=== PATIENT | male | born 1960 | race American Indian/Alaskan Native ===

== ENCOUNTER 2016-07-23 14:13 | Emergency (ER) | payer MEDICARE ==
[2016-07-23 14:29] VITALS: BP 101/67
[2016-07-23] MEDS ORDERED: D5NS 0.2% 1,000 ML IV SCH (15:00)
== END 2016-07-23 22:30 | disposition left against medical advice (07) ==
LOC: ED 14:13
DX: D57.00 Hb-SS disease with crisis, unspecified (principal); Z53.21 Procedure and treatment not carried out due to patient leaving prior to being seen by health care provider

== ENCOUNTER 2020-12-30 01:00 | Emergency (ER) | payer MEDICARE ==
[2020-12-30 01:07] VITALS: BP 110/60
[2020-12-30] MEDS ORDERED: KETOROLAC 30 MG/1 ML INJ IV ONE (01:21)
[2020-12-30] MEDS ORDERED: HYDROmorphone 2 MG/1 ML INJ IV ONE ×3 (01:21→05:06)
[2020-12-30] MEDS ORDERED: ONDANSETRON 4 MG/2 ML INJ IV ONE ×2 (01:21→05:06)
[2020-12-30] MEDS ORDERED: diphenhydrAMINE 50 MG/ML VIAL IV ONE ×2 (01:21→05:06)
--- NOTE | 2020-12-30 01:31 | Emergency Department Report ---
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 Patient is having pain to lower back, bilateral legs, right arm that is mild to severe intensity. Patient is taking Dilaudid 4 mg, Percocet 10 mg, Benadryl, Toradol, and Zofran without improvement. 3 days ago patient received IV fluids and pain medicine at infusion treatment facility without improvement. Patient was evaluated by his auto service station attendant. Patient also reports for about 1 week he has had a infection/rash to his scrotal area secondary to bug bites. He was put on mupirocin and triamcinolone topical treatment prescribed by his auto service station attendant. Patient complains of continued pain and burning scrotal area. No reports of fever. - Related Data Home Medications Medication Instructions Recorded Confirmed Last Taken Folic Acid 0.4 mg PO QDAY 10/27/12 05/04/15 05/04/15 Multivitamin [Multi-Vitamin Daily] 1 each PO DAILY 10/27/12 05/04/15 05/04/15 diphenhydrAMINE [Benadryl CAP] 50 mg PO Q4-6H PRN 10/27/12 05/04/15 04/21/13 09:00 Previous Rx's Medication Instructions Recorded Last Taken Type Oxycodone HCl/Acetaminophen 1 each PO Q6HR PRN #25 tablet 11/26/12 04/19/13 09:00 Rx [Percocet 10/325 mg] Ibuprofen [Motrin] 800 mg PO Q8HR PRN #10 tablet 05/04/15 Unknown Rx cephALEXin [Keflex] 500 mg PO Q6HR #28 capsule 12/30/20 Unknown Rx Allergies Allergy/AdvReac Type Severity Reaction Status Date / Time No Known Allergies Allergy Verified 05/04/15 13:31 ED Review of Systems ROS: Stated complaint: SICKLE CELL Other details as noted in HPI Comment: All other systems reviewed and negative ED Past Medical Hx - Past Medical History Previous Medical History?: Yes Hx Sickle Cell Disease: Yes - Surgical History Past Surgical History?: Yes Hx Cholecystectomy: Yes Additional Surgical History: spleenectomy. port right chest - Social History Smoking Status: Never Smoker Substance Use Type: None - Medications Home Medications: Home Medications Medication Instructions Recorded Confirmed Last Taken Type Folic Acid 0.4 mg PO QDAY 10/27/12 05/04/15 05/04/15 History Multivitamin [Multi-Vitamin Daily] 1 each PO DAILY 10/27/12 05/04/15 05/04/15 History diphenhydrAMINE [Benadryl CAP] 50 mg PO Q4-6H PRN 10/27/12 05/04/15 04/21/13 09:00 History Oxycodone HCl/Acetaminophen 1 each PO Q6HR PRN #25 tablet 11/26/12 05/04/15 04/19/13 09:00 Rx [Percocet 10/325 mg] Ibuprofen [Motrin] 800 mg PO Q8HR PRN #10 tablet 05/04/15 Unknown Rx cephALEXin [Keflex] 500 mg PO Q6HR #28 capsule 12/30/20 Unknown Rx ED Physical Exam - General Limitations: No Limitations - Other Other exam information: General: No acute distress Head: Atraumatic Eyes: normal appearance ENT: Moist mucous membranes Neck: Normal appearance, no midline tenderness Chest: Clear to auscultation bilaterally. Port the left chest CV: Regular rate and rhythm Abdomen: Soft, normal bowel sounds, nontender, nondistended, no rebound or guarding : Left scrotal area with irritated and excoriated skin. Area moist from recent topical treatment. Discoloration does not extend to the penis Back: Normal inspection Extremity: Normal inspection, full range of motion Neuro: Alert O x 3, no facial asymmetry, speech clear, no gross motor sensory deficit Psych: Appropriate behavior Skin: No rash ED Course Vital Signs 12/30/20 12/30/20 01:05 01:57 Temperature 98.3 F Pulse Rate 92 H Respiratory 18 Rate Blood Pressure 110/60 O2 Sat by Pulse 95 98 Oximetry ED Medical Decision Making - Lab Data Result diagrams: 12/30/20 02:07 Lab Results 12/30/20 Range/Units 02:07 WBC 13.8 H (4.5-11.0) K/mm3 RBC 3.27 L (3.65-5.03) M/mm3 Hgb 7.9 L (11.8-15.2) gm/dl Hct 24.9 L (35.5-45.6) % MCV 76 L (84-94) fl MCH 24 L (28-32) pg MCHC 32 (32-34) % RDW 23.2 H (13.2-15.2) % Plt Count 229 (140-440) K/mm3 Add Manual Diff Complete Total Counted 100 Seg Neuts % (Manual) 69.0 (40.0-70.0) % Band Neutrophils % 1.0 % Lymphocytes % (Manual) 23.0 (13.4-35.0) % Monocytes % (Manual) 7.0 (0.0-7.3) % Nucleated RBC % 12.0 H (0.0-0.9) % Seg Neutrophils # Man 0.0 L (1.8-7.7) K/mm3 Band Neutrophils # 0.0 K/mm3 Lymphocytes # (Manual) 0.0 L (1.2-5.4) K/mm3 Abs React Lymphs (Man) 0.0 K/mm3 Monocytes # (Manual) 0.0 (0.0-0.8) K/mm3 Eosinophils # (Manual) 0.0 (0.0-0.4) K/mm3 Basophils # (Manual) 0.0 (0.0-0.1) K/mm3 Metamyelocytes # 0.0 K/mm3 Myelocytes # 0.0 K/mm3 Promyelocytes # 0.0 K/mm3 Blast Cells # 0.0 K/mm3 WBC Morphology Not Reportable Hypersegmented Neuts Not Reportable Hyposegmented Neuts Not Reportable Hypogranular Neuts Not Reportable Smudge Cells Not Reportable Toxic Granulation Not Reportable Toxic Vacuolation Not Reportable Dohle Bodies Not Reportable Pelger-Huet Anomaly Not Reportable Bandar Rods Not Reportable Platelet Estimate Consistent w auto Clumped Platelets Not Reportable Plt Clumps, EDTA Not Reportable Large Platelets Rare Giant Platelets Not Reportable Platelet Satelliting Not Reportable Plt Morphology Comment Not Reportable RBC Morphology Not Reportable Dimorphic RBCs Not Reportable Polychromasia Not Reportable Hypochromasia 1+ Poikilocytosis Not Reportable Anisocytosis 2+ Microcytosis Not Reportable Macrocytosis Not Reportable Spherocytes Few Pappenheimer Bodies Not Reportable Sickle Cells 1+ Target Cells 3+ Tear Drop Cells Not Reportable Ovalocytes Not Reportable Helmet Cells Not Reportable [place] Bodies Not Reportable [place] Rings Not Reportable Liss Cells Not Reportable Bite Cells Not Reportable Crenated Cell Not Reportable Elliptocytes Not Reportable Acanthocytes (Spur) Not Reportable Rouleaux Not Reportable Hemoglobin C Crystals Not Reportable Schistocytes Not Reportable Malaria parasites Not Reportable Percent Retic 1.80 (0.78-2.58) % Reed Bodies Not Reportable Hem Pathologist Adrint No - Medical Decision Making 60-year-old male presents the hospital in sickle cell pain crisis and scrotal discomfort after what he believes were bug bites to his scrotal area. Positive creation on examination. Patient already taken antimicrobial and steroid cream. Since patient continues to have pain without relief p.o. Keflex was started and will be prescribed. Patient has chronic anemia without acute change. Patient reticulocyte count today within normal range. Patient encouraged to follow-up with his auto service station attendant and provided outpatient referral for a urologist Critical Care Time: No Critical care attestation.: If time is entered above; I have spent that time in minutes in the direct care of this critically ill patient, excluding procedure time. ED Disposition Clinical Impression: Sickle cell crisis, Cellulitis, scrotum Disposition: 01 HOME / SELF CARE / HOMELESS Is pt being admited?: No Does the pt Need Aspirin: No Condition: Stable Instructions: Hemolytic Anemia, Cellulitis, Adult Additional Instructions: Take the medication as prescribed. Continue current medications. follow-up with your doctor or doctor/clinic provided. Return if symptoms worsen as indicated by your discharge instructions. Prescriptions: cephALEXin [Keflex] 500 mg PO Q6HR #28 capsule Referrals: PRIMARY CAREMD [Primary Care Provider] - 3-5 Days NICHOLE FIELD MD [Staff Physician] - 3-5 Days (urologist ) your, auto service station attendant [Other] - 3-5 Days Time of Disposition: 05:55
[2020-12-30] MEDS ORDERED: D5W/0.2% NACL 1,000 ML IV SCH (02:00)
[2020-12-30 02:23] LABS: Hematocrit 24.9 % (35.5-45.6); Hemoglobin 7.9 gm/dl (11.8-15.2); Mean Corpuscular HGB Conc 32 % (32-34); Mean Corpuscular Volume 76 fl (84-94); Platelet Count 229 K/mm3 (140-440); Red Blood Count 3.27 M/mm3 (3.65-5.03)
[2020-12-30 02:34] LABS: Red Cell Distribution Width 23.2 % (13.2-15.2)
[2020-12-30 03:30] LABS: Total Cells Counted 100
[2020-12-30 03:31] LABS: Anisocytosis 2+; Hypochromasia 1+
[2020-12-30 03:32] LABS: Sickle Cells 1+; Target Cells 3+
[2020-12-30 03:33] LABS: Large Platelets Rare; Platelet Estimate Consistent w Auto; Spherocytes Few
[2020-12-30] MEDS ORDERED: cephALEXin 500 MG CAP PO ONE (05:02)
== END 2020-12-30 06:25 | disposition home or self-care (01) ==
LOC: ED 01:00
DX: D57.219 Sickle-cell/Hb-C disease with crisis, unspecified (principal); N49.2 Inflammatory disorders of scrotum; Z90.49 Acquired absence of other specified parts of digestive tract
CPT/HCPCS: 36415; 85007; 85025; 85045; 99283; J1170; J1200; J1885; J2405; J7042

== ENCOUNTER 2021-02-20 03:30 | Emergency (ER) | payer MEDICARE ==
[2021-02-20] MEDS ORDERED: SODIUM CHLORIDE 0.9% 1000 ML 1,000 ML IV ONE (04:13)
[2021-02-20] MEDS ORDERED: diphenhydrAMINE 50 MG/ML VIAL IV ONE (04:13)
[2021-02-20] MEDS ORDERED: KETOROLAC 30 MG/1 ML INJ IV ONE (04:13)
[2021-02-20] MEDS ORDERED: ONDANSETRON 4 MG/2 ML INJ IV ONE (04:13)
[2021-02-20] MEDS ORDERED: HYDROmorphone 2 MG/1 ML INJ IV ONE ×2 (04:14→07:53)
--- NOTE | 2021-02-20 04:20 | Emergency Department Report ---
ED General Adult HPI - General Chief complaint: Sickle Cell Crisis Stated complaint: SICKLE CELL Source: patient Mode of arrival: Ambulatory Limitations: No Limitations - History of Present Illness Initial comments: Patient is a 60-year-old -Cym[place] male with a history of chronic sickle cell anemia with occasional sickle cell pain crisis and who takes Percocet 10 mg - 325 mg and Dilaudid 4 mg tablets at home for pain presents to the ED with complaint of acute exacerbation of his chronic sickle cell pain crisis characterized by persistent low back pain that radiates to the lower extremities bilaterally for the last 3 days. Patient states that he has been taking his regular pain medications at home with no relief. Patient states that in the last 8 hours he has not been able to sleep because of worsening pain. Patient states that his symptoms are typical of his chronic sickle cell pain with exacerbations. Patient denies cough, dizziness, syncope, chest pain, shortness of breath, fever, chills, nausea and vomiting or abdominal pain, traumatic injury, heavy lifting, palpitations, sore throat, nasal and sinus congestion or numbness and tingling or weakness of upper and lower extremities bilaterally. MD Complaint: Sickle cell pain crisis; bilateral lower extremity pain; low back pain -: Sudden, days(s) (3) Location: back (Low back), upper extremity (Bilaterally), lower extremity (Bilaterally) Radiation: back (Low back pain radiating to the lower extremities bilaterally), extremity (Bilateral lower extremities) Severity scale (0 -10): 8 Quality: aching, sharp Consistency: constant Improves with: none Worsens with: none Associated Symptoms: denies other symptoms, malaise. denies: confusion, chest pain, cough, diaphoresis, fever/chills, headaches, loss of appetite, nausea/vomiting, rash, seizure, shortness of breath, syncope, weakness, other Treatments Prior to Arrival: none - Related Data Home Medications Medication Instructions Recorded Confirmed Last Taken Folic Acid 0.4 mg PO QDAY 10/27/12 05/04/15 05/04/15 Multivitamin [Multi-Vitamin Daily] 1 each PO DAILY 10/27/12 05/04/15 05/04/15 diphenhydrAMINE [Benadryl CAP] 50 mg PO Q4-6H PRN 10/27/12 05/04/15 04/21/13 09:00 Previous Rx's Medication Instructions Recorded Last Taken Type Oxycodone HCl/Acetaminophen 1 each PO Q6HR PRN #25 tablet 11/26/12 04/19/13 09:00 Rx [Percocet 10/325 mg] Ibuprofen [Motrin] 800 mg PO Q8HR PRN #10 tablet 05/04/15 Unknown Rx cephALEXin [Keflex] 500 mg PO Q6HR #28 capsule 12/30/20 Unknown Rx Allergies Allergy/AdvReac Type Severity Reaction Status Date / Time No Known Allergies Allergy Verified 02/20/21 03:58 ED Review of Systems ROS: Stated complaint: SICKLE CELL Other details as noted in HPI Constitutional: denies: chills, fever Eyes: denies: eye pain, eye discharge, vision change ENT: denies: ear pain, throat pain Respiratory: denies: cough, shortness of breath, wheezing Cardiovascular: denies: chest pain, palpitations Endocrine: no symptoms reported Gastrointestinal: denies: abdominal pain, nausea, diarrhea Genitourinary: denies: urgency, dysuria Musculoskeletal: back pain (Low back pain), arthralgia (Bilateral lower extremity pain), myalgia. denies: joint swelling Skin: denies: rash, lesions Neurological: denies: headache, weakness, paresthesias Psychiatric: denies: anxiety, depression Hematological/Lymphatic: denies: easy bleeding, easy bruising ED Past Medical Hx - Past Medical History Hx Sickle Cell Disease: Yes - Surgical History Hx Cholecystectomy: Yes Additional Surgical History: spleenectomy. port right chest - Social History Smoking Status: Never Smoker Substance Use Type: None - Medications Home Medications: Home Medications Medication Instructions Recorded Confirmed Last Taken Type Folic Acid 0.4 mg PO QDAY 10/27/12 05/04/15 05/04/15 History Multivitamin [Multi-Vitamin Daily] 1 each PO DAILY 10/27/12 05/04/15 05/04/15 History diphenhydrAMINE [Benadryl CAP] 50 mg PO Q4-6H PRN 10/27/12 05/04/15 04/21/13 09:00 History Oxycodone HCl/Acetaminophen 1 each PO Q6HR PRN #25 tablet 11/26/12 05/04/15 04/19/13 09:00 Rx [Percocet 10/325 mg] Ibuprofen [Motrin] 800 mg PO Q8HR PRN #10 tablet 05/04/15 Unknown Rx cephALEXin [Keflex] 500 mg PO Q6HR #28 capsule 12/30/20 Unknown Rx ED Physical Exam - General Limitations: No Limitations General appearance: alert, in no apparent distress - Head Head exam: Present: atraumatic, normocephalic, normal inspection - Eye Eye exam: Present: normal appearance, PERRL, EOMI Pupils: Present: normal accommodation - ENT ENT exam: Present: normal exam, normal orophraynx, mucous membranes moist, TM's normal bilaterally, normal external ear exam - Neck Neck exam: Present: normal inspection, full ROM. Absent: tenderness - Respiratory Respiratory exam: Present: normal lung sounds bilaterally. Absent: respiratory distress, wheezes, rales, rhonchi, chest wall tenderness, accessory muscle use, decreased breath sounds - Cardiovascular Cardiovascular Exam: Present: regular rate, normal rhythm, normal heart sounds. Absent: systolic murmur, diastolic murmur, rubs, gallop - GI/Abdominal GI/Abdominal exam: Present: soft, normal bowel sounds. Absent: tenderness, guarding, rebound, hyperactive bowel sounds, hypoactive bowel sounds, organomegaly, mass - Extremities Exam Extremities exam: Present: normal inspection, full ROM, tenderness (Palpable bilateral knee joint tenderness), normal capillary refill - Back Exam Back exam: Present: normal inspection, full ROM, tenderness (Palpable lumbosacral paraspinal musculoskeletal tenderness), muscle spasm, paraspinal tenderness. Absent: CVA tenderness (R), CVA tenderness (L), vertebral tenderness - Neurological Exam Neurological exam: Present: alert, oriented X3, CN II-XII intact, normal gait, reflexes normal - Psychiatric Psychiatric exam: Present: normal affect, normal mood - Skin Skin exam: Present: warm, dry, intact, normal color. Absent: rash ED Course Vital Signs 02/20/21 03:58 Temperature 98.0 F Pulse Rate 67 Respiratory 19 Rate Blood Pressure 109/58 O2 Sat by Pulse 97 Oximetry ED Medical Decision Making - Medical Decision Making This is a 60-year-old -[place] male with a history of chronic sickle cell anemia with occasional sickle cell pain crisis and who takes Percocet 10 mg - 325 mg and Dilaudid 4 mg tablets at home for pain presents to the ED with complaint of acute exacerbation of his chronic sickle cell pain crisis characterized by persistent low back pain that radiates to the lower extremities bilaterally for the last 3 days. Patient states that he has been taking his regular pain medications at home with no relief. Patient states that in the last 8 hours he has not been able to sleep because of worsening pain. In the ED, patient is alert and oriented x3 and is not in any distress. Patient however appears to be in pain. Patient was treated for pain in the ED and also given normal saline 1 L IV bolus x1. Lab test results - Differential Diagnosis Sickle cell pain crisis; chronic pain syndrome Critical care attestation.: If time is entered above; I have spent that time in minutes in the direct care of this critically ill patient, excluding procedure time. ED Disposition Clinical Impression: Sickle cell pain crisis, Chronic pain syndrome Disposition: 01 HOME / SELF CARE / HOMELESS Is pt being admited?: No Does the pt Need Aspirin: No Condition: Stable Instructions: Pain Medicine Instructions, [id number], Chronic Pain, Adult
--- NOTE | 2021-02-20 06:02 | XRay Report ---
. CHEST 1 VIEW INDICATION: cough. COMPARISON: Chest x-ray from 06/13/2010 FINDINGS: SUPPORT DEVICES: Left-sided Port-A-Cath with tip in the SVC. HEART: Within normal limits. LUNGS/PLEURA: No acute air space or interstitial disease. ADDITIONAL FINDINGS: Multiple diffuse bony sclerosis noted. IMPRESSION: 1. No acute findings. Signer Name: Ananth Alston MD Signed: 02/20/2021 5:58 AM Workstation Name: [id number]
[2021-02-20] MEDS ORDERED: ONDANSETRON 4 MG/2 ML INJ ONE (06:32)
[2021-02-20] MEDS ORDERED: diphenhydrAMINE 50 MG/ML VIAL ONE (06:32)
[2021-02-20] MEDS ORDERED: HYDROmorphone 1 MG/1 ML INJ ONE (06:33)
--- NOTE | 2021-02-20 06:50 | Event Note ---
Date: 02/20/21 Patient resting comfortably in stretcher. He is in no acute distress. Prior documentation reviewed and appreciated. [facility] reviewed and appreciated. Laboratory studies pending. 09: 02; 02/20/2021 Laboratory studies reviewed and appreciated. Patient resting comfortably in stretcher, in no acute distress, with no active vomiting. Laboratory studies are essentially nonactionable. Discussed this with the patient. He is requesting additional pain medication and nausea medication. Have not witnessed any nausea or vomiting. In addition, he appears to have some containers and boxes of empty juice next to him. We will treat him with oral antiemetics, and administer final dose of hydromorphone. The patient reports that he is reliable to follow-up with his outpatient provider. Vital Signs 02/20/21 02/20/21 02/20/21 03:58 08:03 08:05 Temperature 98.0 F Pulse Rate 67 64 Respiratory 19 17 Rate Blood Pressure 109/58 Blood Pressure 108/53 [Right] O2 Sat by Pulse 97 99 97 Oximetry 02/20/21 08:48 Temperature Pulse Rate 92 H Respiratory 17 Rate Blood Pressure Blood Pressure 118/63 [Right] O2 Sat by Pulse 93 Oximetry Vital Signs 02/20/21 03:58 Temperature 98.0 F Pulse Rate 67 Respiratory 19 Rate Blood Pressure 109/58 O2 Sat by Pulse 97 Oximetry [facility] aware Filled Written ID Drug QTY Days Prescriber RX # Dispenser Refill Daily Dose* Pymt Type [facility] 01/17/2021 01/17/2021 1 Oxycodone-Acetaminophen 10-325 20.00 5 Mo Mom [id number] Pub (4620) 0 60.00 MME Comm [facility] 01/17/2021 01/16/2021 1 Hydromorphone 4 Mg Tablet 11.00 2 He Roberto [id number] Pub (4620) 0 88.00 [place]ME [place] 12/16/2020 12/16/2020 1 Zolpidem Tartrate 10 Mg Tablet 30.00 30 Tr Jalen [id number] García ([id number]) 0 0.50 LME [place] 12/13/2020 12/13/2020 2 Hydromorphone 4 Mg Tablet 20.00 10 Ra Claude [id number] Pub (4620) 0 32.00 MME Comm [facility] 12/13/2020 12/13/2020 2 Oxycodone-Acetaminophen 10-325 90.00 30 Ra Claude [id number] Pub (4620) 0 45.00 [place] 11/04/2020 11/04/2020 1 Oxycodone-Acetaminophen 10-325 60.00 15 Tr Jalen [id number] García ([id number]) 0 60.00 [place] 10/12/2020 10/07/2020 1 Tramadol Hcl 50 Mg Tablet 100.00 25 Tr Jalen [id number] Pub (4620) 0 20.00 [place] 10/12/2020 10/07/2020 1 Zolpidem Tartrate 10 Mg Tablet 30.00 30 Tr Jalen [id number] Pub (4620) 0 0.50 [place] 10/10/2020 10/10/2020 1 Diphenoxylate-Atrop 2.5-0.025 60.00 10 Tr Jalen [id number] Pub (4620) 0 0.00 [place] 10/07/2020 10/07/2020 1 Oxycodone-Acetaminophen 10-325 150.00 25 Tr Jalen [id number] García (1343) 0 90.00 [place] 10/07/2020 10/07/2020 1 Hydromorphone 4 Mg Tablet 60.00 10 Tr Jalen [id number] Pub (9324) 0 96.00 [place] 09/15/2020 09/14/2020 1 Hydromorphone 4 Mg Tablet 60.00 10 Tr Jalen [id number] Pub (9324) 0 96.00 [place] 09/13/2020 08/31/2020 1 Zolpidem Tartrate 10 Mg Tablet 30.00 30 Tr Jalen [id number] Pub (4620) 0 0.50 [place] 09/02/2020 08/31/2020 1 Oxycodone-Acetaminophen 10-325 150.00 25 Tr Jalen [id number] Pub (4620) 0 90.00 [place] 09/01/2020 08/31/2020 1 Hydromorphone 4 Mg Tablet 60.00 10 Tr Jalen [id number] Pub (4620) 0 96.00 [place]
[2021-02-20 07:10] LABS: Alanine Aminotransferase 64 units/L (7-56); Albumin 4.2 g/dL (3.9-5); BUN/Creatinine Ratio 21; Blood Urea Nitrogen 25 mg/dL (9-20)
[2021-02-20 07:28] LABS: Hemoglobin 9.7 gm/dl (11.8-15.2); Mean Corpuscular HGB Conc 32 % (32-34); Mean Corpuscular Volume 78 fl (84-94); Platelet Count 222 K/mm3 (140-440); Red Blood Count 3.87 M/mm3 (3.65-5.03)
[2021-02-20 07:59] LABS: Calcium 9.5 mg/dL (8.4-10.2); Hemolysis Index 7
[2021-02-20] MEDS ORDERED: METOCLOPRAMIDE 10 MG TAB PO ONE (08:21)
[2021-02-20 08:28] LABS: Total Cells Counted 100
[2021-02-20 08:29] LABS: Anisocytosis 2+; Hypochromasia 1+; Poikilocytosis 2+; Sickle Cells 1+; Target Cells 2+
[2021-02-20 08:30] LABS: Platelet Estimate Consistent w Auto; Tear Drop Cells Rare
[2021-02-20 08:53] LABS: Erythrocyte Sedimentation Rate 8 mm/Hr (0-20)
[2021-02-20] MEDS ORDERED: diphenhydrAMINE 25 MG CAP PO ONE (08:56)
[2021-02-20] MEDS ORDERED: HYDROmorphone 1 MG/1 ML INJ IV ONE (09:01)
[2021-02-20 09:17] VITALS: BP 115/60
== END 2021-02-20 10:11 | disposition home or self-care (01) ==
LOC: ED 03:30
DX: D57.00 Hb-SS disease with crisis, unspecified (principal); G89.4 Chronic pain syndrome; Z98.890 Other specified postprocedural states; Z79.899 Other long term (current) drug therapy
CPT/HCPCS: 36415; 71045; 80053; 85007; 85025; 85045; 85652; 96361; 96374; 96375; 96376; 99284; J1170; J1200; J1642; J2405; J7030; Q0162